=== PATIENT | female | born 1970 | race American Indian/Alaskan Native ===

== ENCOUNTER 2019-04-02 21:34 | Emergency (ER) | payer OTHER ==
[2019-04-03] MEDS ORDERED: fentaNYL 100 MCG/2 ML INJ IV ONE (01:23)
[2019-04-03] MEDS ORDERED: ONDANSETRON 4 MG/2 ML INJ IV ONE (01:23)
--- NOTE | 2019-04-03 01:28 | Emergency Department Report ---
HPI - General Chief Complaint: Abdominal Pain Time Seen by Provider: 04/03/19 01:15 - [facility] HPI: Room 37 The patient is a 48-year-old female presented with a chief complaint of abdominal pain. Patient states her pain began 2 days ago with pain in the right lower quadrant. Patient states her pain has been constant but worsens with any type of movement. Patient states she's had nausea and vomiting for the past 2 days. Patient denies diarrhea. Patient admits to subjective fever and chills. Patient denies dysuria or hematuria but states her urine has been cloudy in appearance. Patient admits to body aches. Patient denies vaginal discharge. Patient states she is menopausal and has not had a cycle in months. Patient currently gets her pain score of 8/10 Location: [See above] Duration: [See above] Quality: [See above] Severity: [See above] Timing: [See above] Context: [See above] Modifying factors: [See above] Associated signs and symptoms: [see above] ED Past Medical Hx - Past Medical History Previous Medical History?: No - Surgical History Past Surgical History?: Yes Additional Surgical History: Right Femur surgery with pins - Family History Family history: no significant - Social History Smoking Status: Never Smoker Substance Use Type: Alcohol (occasional) - Medications Home Medications: Home Medications Medication Instructions Recorded Confirmed Last Taken Type Ciprofloxacin HCl [Ciprofloxacin 500 mg PO Q12HR #20 tab 04/03/19 Unknown Rx TAB] HYDROcodone/APAP 5-325 [[place] 1 - 2 each PO Q6HR PRN #14 tablet 04/03/19 Unknown Rx 5/325] Ibuprofen [Motrin 800 MG tab] 800 mg PO Q8HR PRN #20 tablet 04/03/19 Unknown Rx Promethazine [Phenergan] 25 mg PO Q6HR PRN #20 tab 04/03/19 Unknown Rx Promethazine [Phenergan] 25 mg [place] Q6HR PRN #5 supp.rect 04/03/19 Unknown Rx ED Review of Systems ROS: Stated complaint: ABD PAIN Other details as noted in HPI Constitutional: chills, fever (subjective) Eyes: denies: eye pain ENT: denies: throat pain Respiratory: no symptoms reported Cardiovascular: denies: chest pain Endocrine: no symptoms reported Gastrointestinal: abdominal pain, nausea, vomiting Genitourinary: denies: dysuria, hematuria, discharge Musculoskeletal: denies: back pain Neurological: denies: headache Physical Exam - Physical Exam Vital Signs: Vital Signs 04/02/19 22:18 Temperature 99.9 F H Pulse Rate 80 Respiratory 18 Rate Blood Pressure 113/67 O2 Sat by Pulse 99 Oximetry Physical Exam: GENERAL: The patient is well-developed well-nourished female lying on stretcher not appear to be in acute distress. [] HEENT: Normocephalic. Atraumatic. Extraocular motions are intact. Patient has moist mucous membranes. NECK: Supple. Trachea midline CHEST/LUNGS: Clear to auscultation. There is no respiratory distress noted. HEART/CARDIOVASCULAR: Regular. There is no tachycardia. There is no gallop rub or murmur. ABDOMEN: Abdomen is soft, with tenderness to palpation in the right upper quadr ant and right lower quadrant. Patient has normal bowel sounds. There is no abdominal distention. SKIN: There is no rash. There is no edema. There is no diaphoresis. NEURO: The patient is awake, alert, and oriented. The patient is cooperative. The patient has normal speech and gait. MUSCULOSKELETAL: There is no CVA tenderness. There is no evidence of acute injury. ED Course Vital Signs 04/02/19 22:18 Temperature 99.9 F H Pulse Rate 80 Respiratory 18 Rate Blood Pressure 113/67 O2 Sat by Pulse 99 Oximetry ED Medical Decision Making - Lab Data Result diagrams: 04/03/19 02:01 04/03/19 02:01 Laboratory Tests 04/03/19 04/03/19 04/03/19 01:28 02:01 02:01 WBC 12.2 H RBC 4.01 Hgb 12.9 Hct 38.5 MCV 96 MCH 32 MCHC 33 RDW 13.3 Plt Count 174 Lymph % (Auto) 10.7 L [place] % (Auto) 7.1 Eos % (Auto) 0.0 Baso % (Auto) 0.1 Lymph # 1.3 [place] # 0.9 H Eos # 0.0 Baso # 0.0 Seg Neutrophils % 82.1 H Seg Neutrophils # 10.0 H Sodium 135 L Potassium 3.8 Chloride 101.0 Carbon Dioxide 22 Anion Gap 16 BUN 13 Creatinine 0.9 Estimated GFR > 60 BUN/Creatinine Ratio 14 Glucose 104 H Calcium 8.9 Total Bilirubin 0.50 AST 15 ALT 9 Alkaline Phosphatase 78 Total Protein 7.8 Albumin 4.0 Albumin/Globulin Ratio 1.1 Lipase HCG, Qual Urine Color Yellow Urine Turbidity Cloudy Urine pH 6.0 Ur Specific [place] 1.016 Urine Protein 100 mg/dl Urine Glucose (UA) Neg Urine Ketones Tr Urine Blood Mod Urine Nitrite Pos Urine Bilirubin Neg Urine Urobilinogen < 2.0 Ur Leukocyte Esterase Lg Urine WBC (Auto) > 182.0 H Urine RBC (Auto) 145.0 U Epithel Cells (Auto) 3.0 Urine Bacteria (Auto) 3+ Urine WBC Clumps 3+ Urine Mucus 3+ Urine Yeast (Budding) 3+ Urine Sperm 1+ 04/03/19 04/03/19 02:01 02:01 WBC RBC Hgb Hct MCV MCH MCHC RDW Plt Count Lymph % (Auto) [place] % (Auto) Eos % (Auto) Baso % (Auto) Lymph # [place] # Eos # Baso # Seg Neutrophils % Seg Neutrophils # Sodium Potassium Chloride Carbon Dioxide Anion Gap BUN Creatinine Estimated GFR BUN/Creatinine Ratio Glucose Calcium Total Bilirubin AST ALT Alkaline Phosphatase Total Protein Albumin Albumin/Globulin Ratio Lipase 14 HCG, Qual Negative Urine Color Urine Turbidity Urine pH Ur Specific [place] Urine Protein Urine Glucose (UA) Urine Ketones Urine Blood Urine Nitrite Urine Bilirubin Urine Urobilinogen Ur Leukocyte Esterase Urine WBC (Auto) Urine RBC (Auto) U Epithel Cells (Auto) Urine Bacteria (Auto) Urine WBC Clumps Urine Mucus Urine Yeast (Budding) Urine Sperm - Radiology Data Radiology results: report reviewed (CT abdomen and pelvis), image reviewed (CT abdomen and pelvis) [address] [address] Cat Scan Report Signed Patient: THIEN BUSBY MR#: [id number] : 1970 Acct:[id number] Age/Sex: 48 / F ADM Date: 04/02/19 Loc: ED Attending Dr: Ordering Physician: NATY LEE MD Date of Service: 04/03/19 Procedure(s): CT abdomen pelvis w con Accession Number(s): [id number] cc: NATY LEE MD CT ABDOMEN AND PELVIS WITH IV CONTRAST INDICATION: right-sided abdominal pain, nausea vomiting. COMPARISON: None available. TECHNIQUE: Axial CT images were obtained through the abdomen and pelvis after IV contrast. All CT scans at this location are performed using CT dose reduction for ALARA by means of automated exposure control. FINDINGS -- ABDOMEN: Lung Bases: No acute abnormality. Liver: Normal. Gallbladder: Normal. Bile Ducts: Normal. Pancreas: Normal. Spleen: Normal. Adrenals: Normal. Right Kidney and Proximal Ureter: Abnormal enhancement involving much of the right kidney which is enlarged with respect to the left.. No free fluid is noted on the right.. Left Kidney and Proximal Ureter: Normal. Stomach and Bowel: Normal. Lymph Nodes: No significant adenopathy. Aorta: No significant abnormality. IVC: Normal. Additional Findings: None. FINDINGS -- PELVIS: Urinary Bladder and Distal Ureters: Normal. Reproductive Organs: Intrauterine device. Appendix: Normal. Bowel: No acute abnormality. Free Fluid: Small. Lymph Nodes: No significant adenopathy. Additional Findings: None. Skeletal System: No acute abnormality. IMPRESSION: Acute pyelonephritis of the right kidney, as above Signer Name: Timmy Solomon MD Signed: 04/03/2019 2:27 AM Workstation Name: [id number] Transcribed By: BC Dictated By: Timmy Solomon MD Electronically Authenticated By: Timmy Solomon MD Signed Date/Time: 04/03/19226 DD/ 5 TD/TT: - Differential Diagnosis UTI, pyelonephritis, cholelithiasis, appendicitis Critical care attestation.: If time is entered above; I have spent that time in minutes in the direct care of this critically ill patient, excluding procedure time. ED Disposition Clinical Impression: Pyelonephritis, Acute abdominal pain Disposition: - TO HOME OR SELFCARE Is pt being admited?: No Does the pt Need Aspirin: No Condition: Stable Instructions: Abdominal Pain (ED) Additional Instructions: Return to the emergency department should you develop worsening symptoms, inability to tolerate food or liquids, high fever or any other concerns Prescriptions: Ciprofloxacin HCl [Ciprofloxacin TAB] 500 mg PO Q12HR #20 tab Ibuprofen [Motrin 800 MG tab] 800 mg PO Q8HR PRN #20 tablet PRN Reason: Pain, Moderate (4-6) HYDROcodone/APAP 5-325 [[place] 5/325] 1 - 2 each PO Q6HR PRN #14 tablet PRN Reason: Pain Promethazine [Phenergan] 25 mg PO Q6HR PRN #20 tab PRN Reason: Nausea Promethazine [Phenergan] 25 mg HI Q6HR PRN #5 supp.rect PRN Reason: Vomiting Referrals: MAIKOL VALENZUELA MD [Staff Physician] - 3-5 Days Forms: AMA Form Time of Disposition: 02:52
[2019-04-03 01:56] LABS: Bacteria,Urine 3+ /HPF (Negative); Bilirubin,Urine NEG (Negative); Blood,Urine MOD (Negative); Color,Urine Yellow (Yellow); Mucus,Urine 3+ /HPF; Sperm,Urine 1+ /HPF (NP); Urobilinogen,Urine < 2.0 mg/dL (<2.0)
[2019-04-03 01:59] LABS: WBC,Urine > 182.0 /HPF (0.0-6.0)
[2019-04-03] MEDS ORDERED: levoFLOXacin 750 MG TAB PO ONE (02:09)
--- NOTE | 2019-04-03 02:31 | Cat Scan Report ---
CT ABDOMEN AND PELVIS WITH IV CONTRAST INDICATION: right-sided abdominal pain, nausea vomiting. COMPARISON: None available. TECHNIQUE: Axial CT images were obtained through the abdomen and pelvis after IV contrast. All CT scans at this location are performed using CT dose reduction for ALARA by means of automated exposure control. FINDINGS -- ABDOMEN: Lung Bases: No acute abnormality. Liver: Normal. Gallbladder: Normal. Bile Ducts: Normal. Pancreas: Normal. Spleen: Normal. Adrenals: Normal. Right Kidney and Proximal Ureter: Abnormal enhancement involving much of the right kidney which is en larged with respect to the left.. No free fluid is noted on the right.. Left Kidney and Proximal Ureter: Normal. Stomach and Bowel: Normal. Lymph Nodes: No significant adenopathy. Aorta: No significant abnormality. IVC: Normal. Additional Findings: None. FINDINGS -- PELVIS: Urinary Bladder and Distal Ureters: Normal. Reproductive Organs: Intrauterine device. Appendix: Normal. Bowel: No acute abnormality. Free Fluid: Small. Lymph Nodes: No significant adenopathy. Additional Findings: None. Skeletal System: No acute abnormality. IMPRESSION: Acute pyelonephritis of the right kidney, as above Signer Name: Timmy Solomon MD Signed: 04/03/2019 2:27 AM Workstation Name: [id number]
[2019-04-03 02:35] LABS: Alanine Aminotransferase 9 units/L (7-56); BUN/Creatinine Ratio 14; Blood Urea Nitrogen 13 mg/dL (7-17); Calcium 8.9 mg/dL (8.4-10.2); Hemolysis Index 8
[2019-04-03 02:46] LABS: Basophils % (Auto) 0.1 % (0.0-1.8); Hematocrit 38.5 % (30.3-42.9); Hemoglobin 12.9 gm/dl (10.1-14.3); Lymphocytes # (Auto) 1.3 K/mm3 (1.2-5.4); Lymphocytes % (Auto) 10.7 % (13.4-35.0); Mean Corpuscular HGB Conc 33 % (30-34); Mean Corpuscular Volume 96 fl (79-97); Monocytes # (Auto) 0.9 K/mm3 (0.0-0.8); Monocytes % (Auto) 7.1 % (0.0-7.3); Platelet Count 174 K/mm3 (140-440); Red Blood Count 4.01 M/mm3 (3.65-5.03); Red Cell Distribution Width 13.3 % (13.2-15.2)
[2019-04-03 03:46] VITALS: BP 154/82
== END 2019-04-03 03:02 | disposition home or self-care (01) ==
LOC: ED 21:34
DX: N12 Tubulo-interstitial nephritis, not specified as acute or chronic (principal); F10.10 Alcohol abuse, uncomplicated; Z79.899 Other long term (current) drug therapy
CPT/HCPCS: 36415; 74177; 80053; 81001; 83690; 84703; 85025; 87076; 87086; 87186; 99284; Q9967

== ENCOUNTER 2021-09-29 16:13 | Emergency (ER) | payer OTHER ==
--- NOTE | 2021-09-29 21:34 | XRay Report ---
Cervical spine, 6 views HISTORY: Neck pain COMPARISON: None FINDINGS: Reversal of normal cervical lordosis. Minimal retrolisthesis of C4 on C5. Moderate disc spa ce height loss at C5-C6, less so at C4-C5. Mild/moderate multilevel facet and uncovertebral degenerat av changes. Odontoid view is intact. Prevertebral soft tissues are within normal limits. Visualized lung apices are clear. IMPRESSION: 1. No acute findings. 2. Degenerative changes, as above. Signer Name: Lloyd Ulrich MD Signed: 09/29/2021 9:29 PM Workstation Name: [id number]
[2021-09-29] MEDS ORDERED: HYDROcodone/ACETAMINOPHEN 5-325 MG TAB PO STA (22:02)
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
[2021-09-29 23:39] VITALS: BP 127/78
== END 2021-09-30 01:50 | disposition home or self-care (01) ==
LOC: ED 16:13
DX: S16.1XXA Strain of muscle, fascia and tendon at neck level, initial encounter (principal); S09.90XA Unspecified injury of head, initial encounter; Z79.899 Other long term (current) drug therapy; V89.2XXA Person injured in unspecified motor-vehicle accident, traffic, initial encounter; Y93.89 Activity, other specified; Y92.89 Other specified places as the place of occurrence of the external cause; Y99.8 Other external cause status
CPT/HCPCS: 72040; 99283